=== PATIENT | female | born 1975 ===

== ENCOUNTER 2021-06-24 11:45 | Inpatient (IN) | payer OTHER ==
[~2021-06-24] VITALS: Ht 157.5 cm; Wt 70.8 kg
== END 2021-06-27 17:23 | disposition home or self-care (01) | DRG 747 ==
LOC: O/R 06-26 08:21 → OB/GYN 06-26 08:21
PROVIDERS: ADMIT Specialist; ATTEND Specialist
PROC: 0UBM0ZZ Excision of Vulva, Open Approach (ICD-10-PCS; principal; 2021-06-26 17:30)
DX: D28.0 Benign neoplasm of vulva (principal)